=== PATIENT | female | born 1990 | race Caucasian/White ===

== ENCOUNTER 2021-02-27 03:11 | Emergency (ER) | payer MEDICAID, OTHER ==
[~2021-02-27] VITALS: Ht 162.6 cm; Wt 68.0 kg
[2021-02-27] MEDS ORDERED: CLINDAMYCIN 600 MG in DEXTROSE 5% WATER 50 ML IV STA (03:56)
[2021-02-27] MEDS ORDERED: MORPHINE SULFATE 4 MG/ML CPJ (NOT FOR IM USE) IV STA (03:56)
[2021-02-27] MEDS ORDERED: CEFTRIAXONE 2 G PREMIX 50 ML IV STA (03:56)
[2021-02-27] MEDS ORDERED: DEXAMETHASONE 4MG/ML 1ML VIAL IV ONE (04:00)
[2021-02-27] MEDS ORDERED: SODIUM CHLORIDE 0.9% 1,000 ML IV ONE (04:00)
[2021-02-27] MEDS ORDERED: CLINDAMYCIN 600MG PREMIX 50 ML IV NR (04:15)
[2021-02-27 04:57] LABS: BASOPHILS % 0.3 % (0.0-2.0); EOSINOPHILS % 0.1 % (0.0-5.0); HEMATOCRIT. 38.5 % (36.0-48.0); HEMOGLOBIN. 13.1 g/dL (12.0-16.0); LYMPHOCYTES % 22.1 % (20.0-50.0); MEAN CORPUSCULAR HEMOGLOBIN 30.1 pg (28.0-32.0); MEAN CORPUSCULAR VOLUME 88.2 fL (81.0-99.0); MEAN PLATELET VOLUME 7.2 fl (7.4-10.4); MONOCYTES % 12.8 % (2.0-8.0); NEUTROPHILS % 64.7 % (40.0-76.0); PLATELET 358 x1000/uL (130-400); RED BLOOD CELL COUNT 4.37 mill/uL (4.2-5.4); RED CELL DISTRIBUTION WIDTH 12.8 % (11.6-14.6)
[2021-02-27 05:44] LABS: HCG SCREEN NEGATIVE
[2021-02-27 06:02] LABS: CHLORIDE 103 mEq/L (98-107)
[2021-02-27] MEDS ORDERED: IOHEXOL-300 100 ML BOTTLE ONE (06:50)
[2021-02-27] MEDS ORDERED: TETRACAINE/BENZOCAINE/BUTAMBEN 20 GM SPRAY MM ONE (07:00)
[2021-02-28] MEDS ORDERED: ONDANSETRON HCL 4MG/2ML INJ IV ONE (07:30)
[2021-02-28] MEDS ORDERED: MORPHINE SULFATE 4 MG/ML CPJ (NOT FOR IM USE) IV ONE ×2 (07:30→17:00)
[2021-02-28] MEDS ORDERED: MORPHINE SULFATE 4 MG/ML CPJ (NOT FOR IM USE) IV SCH (18:30)
[2021-02-28] MEDS: AMPICILLIN SOD/SULBACTAM NA 3 G in SODIUM CHLORIDE 0.9% 100 ML IV SCH (18:58)
[2021-02-28] MEDS ORDERED: DEXAMETHASONE 4MG/ML 1ML VIAL IV ONE (19:00)
[2021-02-28] MEDS ORDERED: IOHEXOL-300 100 ML BOTTLE ONE (23:38)
[2021-03-01] MEDS: AMPICILLIN SOD/SULBACTAM NA 3 G in SODIUM CHLORIDE 0.9% 100 ML IV SCH (00:26)
[2021-03-01] MEDS ORDERED: CLIN300C12 MT (01:08)
[2021-03-01] MEDS ORDERED: IBUP-2029 MT (01:08)
[2021-03-01 01:30] VITALS: BP 100/64
== END 2021-03-01 01:58 | disposition left against medical advice (07) ==
LOC: ER 03:11
DX: J36 Peritonsillar abscess (principal); U07.1 COVID-19
CPT/HCPCS: 36415; 70491; 80053; 81025; 84703; 85025; 86850; 86900; 86901; 87426; 96365; 96368; 96375; 96376; 99285; J0295; J0696; J1100; J2270; J2405; J3490; J7030; J7050; Q9967; Z7610; J7060

== ENCOUNTER 2021-10-10 23:44 | Emergency (ER) | payer MEDICAID ==
[~2021-10-10] VITALS: Ht 149.9 cm; Wt 61.0 kg
[~2021-10-10 23:44] MED LIST: CLIN-194 MT; IBUP-2029 MT
[2021-10-11 00:01] VITALS: BP 121/83
== END 2021-10-11 01:25 | disposition left against medical advice (07) ==
LOC: ER 23:44
DX: Z53.21 Procedure and treatment not carried out due to patient leaving prior to being seen by health care provider (principal)

== ENCOUNTER 2021-10-11 02:53 | Emergency (ER) | payer MEDICAID ==
[~2021-10-11] VITALS: Ht 149.9 cm; Wt 61.0 kg
[2021-10-11 03:03] VITALS: BP 122/87
== END 2021-10-11 05:45 | disposition left against medical advice (07) ==
LOC: ER 03:16
DX: L03.115 Cellulitis of right lower limb (principal)
CPT/HCPCS: 93971; 99284

== ENCOUNTER 2025-01-19 23:02 | Emergency (ER) | payer MEDICAID ==
[~2025-01-19] VITALS: Ht 165.1 cm; Wt 84.0 kg
[~2025-01-19 23:02] MED LIST changes: +IBUP-1455 MT; -IBUP-2029 MT
[2025-01-19 23:35] VITALS: O2SAT 96
[2025-01-20 00:45] VITALS: BP 114/74; PULSE 84; RESP 20; TEMP 36.8; O2SAT 96
== END 2025-01-20 00:51 | disposition home or self-care (01) ==
LOC: ER 23:02
DX: R07.89 Other chest pain (principal); F12.90 Cannabis use, unspecified, uncomplicated; F15.90 Other stimulant use, unspecified, uncomplicated; Z90.49 Acquired absence of other specified parts of digestive tract
CPT/HCPCS: 71045; 93005; 99283